=== PATIENT | female | born 1980 | race Caucasian/White ===

== ENCOUNTER 2016-11-14 04:27 | Emergency (ER) | payer OTHER ==
[~2016-11-14] VITALS: Ht 167.6 cm; Wt 72.6 kg
[2016-11-14 04:36] VITALS: BP 141/81
--- NOTE | 2016-11-14 04:38 | NUR ---
jordyn byrne at bedside to elisa mathew.
== END 2016-11-14 05:06 | disposition home or self-care (01) ==
LOC: ER 04:31
DX: F41.9 Anxiety disorder, unspecified (principal); F14.10 Cocaine abuse, uncomplicated; F10.10 Alcohol abuse, uncomplicated
CPT/HCPCS: 99283; A4606; Z7610